=== PATIENT | female | born 1940 | race Caucasian/White ===

== ENCOUNTER 2020-05-11 16:17 | Emergency (ER) | payer MEDICARE ==
[2020-05-11 16:31] VITALS: BP 127/68; PULSE 68; RESP 18; TEMP 97.7
[2020-05-11] MEDS ORDERED: SODIUM CHLORIDE 0.9% 500 ML 500 ML IV STA (16:38)
--- NOTE | 2020-05-11 16:50 | ED ---
General Adult HPI - General Chief complaint: Neuro Symptoms/Deficit Stated complaint: Medication REaction Time Seen by Provider: 05/11/20 16:21 Source: EMS Mode of arrival: EMS Limitations: no limitations - History of Present Illness Initial comments: 79-year-old female patient presents to the emergency department today for evaluation of facial droop. Patient was at the dentist states that she had 2 teeth on the right upper and one tooth on the left upper work done today. She is brought in due to spasming of the right side of the face. Patient states she was having visual disturbance on the right side which resolved. She denies any headache or dizziness. Denies numbness, weakness, or pain to her extremities. Denies chest pain or shortness of breath. 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 Dentist appointment started at 1450. Patient denies any recent rash, fever, chills, cough, abdominal pain, nausea, vomiting, diarrhea, constipation, back pain, dizziness, weakness, hematuria, dysuria, urinary urgency, urinary frequency, or any other complaints. She does generally take plavix which she stopped before her procedure. - Related Data Allergies Allergy/AdvReac Type Severity Reaction Status Date / Time No Known Allergies Allergy Verified 05/11/20 16:31 Review of Systems ROS Statement: Those systems with pertinent positive or pertinent negative responses have been documented in the HPI. ROS Other: All systems not noted in ROS Statement are negative. Past Medical History Past Medical History: CVA/TIA, Hypertension Additional Past Medical History / Comment(s): diverticulosis, endometriosis, History of Any Multi-Drug Resistant Organisms: None Reported Additional Past Surgical History / Comment(s): bladder, carotid artery angioplasty, carpal tunnel, coronary artery stent placement, Past Psychological History: No Psychological Hx Reported Smoking Status: Never smoker Past Alcohol Use History: None Reported Past Drug Use History: None Reported General Exam Limitations: no limitations General appearance: alert, in no apparent distress, other (Physical well- developed, well-nourished elderly female patient in no acute distress. Vital signs upon presentation are temperature 97.7F, pulse 68, respirations 18, blood pressure 127/68, pulse ox 98% on room air.) Eye exam: Present: normal appearance, PERRL, EOMI. Absent: scleral icterus, conjunctival injection, periorbital swelling ENT exam: Present: normal exam, normal oropharynx, mucous membranes moist Respiratory exam: Present: normal lung sounds bilaterally. Absent: respiratory distress, wheezes, rales, rhonchi, stridor Cardiovascular Exam: Present: regular rate, normal rhythm, normal heart sounds. Absent: systolic murmur, diastolic murmur, rubs, gallop, clicks GI/Abdominal exam: Present: soft, normal bowel sounds. Absent: distended, tenderness, guarding, rebound, rigid Neurological exam: Present: alert, oriented X3, CN II-XII intact Expanded Speech: Present: fluid speech Cranial nerves: EOM's Intact: Normal, Tongue Deviation: Normal, Nystagmus: Norm al, Facial Sensation: Abnormal Left, Facial Palsy without Forehead Movement: Abnormal Left Upper motor neuron: Pronator Drift: Normal Motor strength exam: RUE: 5, LUE: 5, RLE: 5, LLE: 5 Psychiatric exam: Present: normal affect, normal mood Skin exam: Present: warm, dry, intact, normal color. Absent: rash Course Vital Signs 05/11/20 16:19 Temperature 97.7 F Pulse Rate 68 Respiratory 18 Rate Blood Pressure 127/68 O2 Sat by Pulse 98 Oximetry EKG Findings - EKG Comments: EKG Findings:: EKG obtained at 1735 shows normal sinus rhythm with a ventricular rate of 60, P return of a 154, QRS duration 80, QT 4:30, QTC 4:30. No evidence of ST elevation or depression Medical Decision Making - Medical Decision Making 79-year-old female patient presents to the emergency department today for evaluation of left-sided facial droop and right-sided spasming after having a dental procedure. Physical examination did reveal left-sided facial droop with forehead involvement. Remainder of physical neuro exam was unremarkable. She had no limb drift numbness, or taking going to the extremities. EKG was unremarkable. Chest x-ray is negative. CT brain was negative. Labs are unremarkable. Upon reevaluation patient symptoms have completely resolved. Did feel this is related to receiving medication for the dental procedure. She does feel comfortable being discharged home at this time. Instructed to follow-up with the primary care physician for recheck in 1-2 days. Return parameters were discussed in detail. They're to maintain low threshold to return if symptoms return or she has any new symptoms. Patient and verbalize understanding and agree with this plan. Case discussed with my attending Dr. Bailey. - Lab Data Result diagrams: 05/11/20 16:43 05/11/20 16:43 Lab Results 05/11/20 05/11/20 05/11/20 Range/Units 16:43 16:43 16:43 WBC 5.0 (3.8-10.6) k/uL RBC 4.04 (3.80-5.40) m/uL Hgb 12.2 (11.4-16.0) gm/dL Hct 36.5 (34.0-46.0) % MCV 90.2 (80.0-100.0) fL MCH 30.2 (25.0-35.0) pg MCHC 33.5 (31.0-37.0) g/dL RDW 12.7 (11.5-15.5) % Plt Count 207 (150-450) k/uL MPV 7.6 Neutrophils % 52 % Lymphocytes % 38 % Monocytes % 6 % Eosinophils % 2 % Basophils % 0 % Neutrophils # 2.6 (1.3-7.7) k/uL Lymphocytes # 1.9 (1.0-4.8) k/uL Monocytes # 0.3 (0-1.0) k/uL Eosinophils # 0.1 (0-0.7) k/uL Basophils # 0.0 (0-0.2) k/uL PT 10.7 (9.0-12.0) sec INR 1.0 (<1.2) APTT 20.7 L (22.0-30.0) sec Sodium 139 (137-145) mmol/L Potassium 4.5 (3.5-5.1) mmol/L Chloride 107 (98-107) mmol/L Carbon Dioxide 23 (22-30) mmol/L Anion Gap 9 mmol/L BUN 28 H (7-17) mg/dL Creatinine 1.13 H (0.52-1.04) mg/dL Est GFR (CKD-EPI)AfAm 54 (>60 ml/min/1.73 sqM) Est GFR (CKD-EPI)NonAf 47 (>60 ml/min/1.73 sqM) Glucose 88 (74-99) mg/dL Calcium 9.2 (8.4-10.2) mg/dL Total Bilirubin 0.5 (0.2-1.3) mg/dL AST 32 (14-36) U/L ALT 23 (4-34) U/L Alkaline Phosphatase 29 L (38-126) U/L Troponin I (0.000-0.034) ng/mL Total Protein 6.8 (6.3-8.2) g/dL Albumin 3.9 (3.5-5.0) g/dL 05/11/20 Range/Units 16:43 WBC (3.8-10.6) k/uL RBC (3.80-5.40) m/uL Hgb (11.4-16.0) gm/dL Hct (34.0-46.0) % MCV (80.0-100.0) fL MCH (25.0-35.0) pg MCHC (31.0-37.0) g/dL RDW (11.5-15.5) % Plt Count (150-450) k/uL MPV Neutrophils % % Lymphocytes % % Monocytes % % Eosinophils % % Basophils % % Neutrophils # (1.3-7.7) k/uL Lymphocytes # (1.0-4.8) k/uL Monocytes # (0-1.0) k/uL Eosinophils # (0-0.7) k/uL Basophils # (0-0.2) k/uL PT (9.0-12.0) sec INR (<1.2) APTT (22.0-30.0) sec Sodium (137-145) mmol/L Potassium (3.5-5.1) mmol/L Chloride (98-107) mmol/L Carbon Dioxide (22-30) mmol/L Anion Gap mmol/L BUN (7-17) mg/dL Creatinine (0.52-1.04) mg/dL Est GFR (CKD-EPI)AfAm (>60 ml/min/1.73 sqM) Est GFR (CKD-EPI)NonAf (>60 ml/min/1.73 sqM) Glucose (74-99) mg/dL Calcium (8.4-10.2) mg/dL Total Bilirubin (0.2-1.3) mg/dL AST (14-36) U/L ALT (4-34) U/L Alkaline Phosphatase (38-126) U/L Troponin I <0.012 (0.000-0.034) ng/mL Total Protein (6.3-8.2) g/dL Albumin (3.5-5.0) g/dL - Radiology Data Radiology results: report reviewed, image reviewed CT brain without contrast was obtained. Report is reviewed in its entirety. Impression by Dr. Balderas shows mild cervical atrophy. No acute intracranial abnormality. Two-view x-ray of the chest is obtained. Report is reviewed in its entirety. Impression by Dr. Polo shows no active cardiopulmonary disease. Normal heart. Disposition Clinical Impression: Facial droop, Medication reaction Disposition: HOME SELF-CARE Condition: Good Instructions (If sedation given, give patient instructions): Paresthesia (ED) Additional Instructions: Follow-up with your primary care physician for recheck in 1-2 days. If symptoms return present to nearest emergency department immediately. Return to the emergency department for any new, worsening, or concerning symptoms per Is patient prescribed a controlled substance at d/c from ED?: No Referrals: Mika Dow DO [Primary Care Provider] - 1-2 days Time of Disposition: 18:33
[2020-05-11 16:55] LABS: Basophils % (A) 0 %; Eosinophils # (A) 0.1 k/uL (0-0.7); Eosinophils % (A) 2 %; HCT 36.5 % (34.0-46.0); HGB 12.2 gm/dL (11.4-16.0); Lymphocytes # (A) 1.9 k/uL (1.0-4.8); Lymphocytes % (A) 38 %; MCH 30.2 pg (25.0-35.0); MCHC 33.5 g/dL (31.0-37.0); MCV 90.2 fL (80.0-100.0); Mean Platelet Volume 7.6; Monocytes # (A) 0.3 k/uL (0-1.0); Monocytes % (A) 6 %; Neutrophils # (A) 2.6 k/uL (1.3-7.7); Neutrophils % (A) 52 %; Platelet Count 207 k/uL (150-450); RBC 4.04 m/uL (3.80-5.40); RDW 12.7 % (11.5-15.5)
[2020-05-11 17:05] LABS: Albumin 3.9 g/dL (3.5-5.0); Calcium 9.2 mg/dL (8.4-10.2); Potassium 4.5 mmol/L (3.5-5.1); Total Bilirubin 0.5 mg/dL (0.2-1.3); Total Protein 6.8 g/dL (6.3-8.2)
[2020-05-11 17:10] LABS: Prothrombin Time 10.7 sec (9.0-12.0)
[2020-05-11 17:18] LABS: Partial Thromboplastin Time 20.7 sec (22.0-30.0)
--- NOTE | 2020-05-11 17:41 | CT ---
EXAMINATION TYPE: CT brain wo con DATE OF EXAM: 05/11/2020 COMPARISON: None HISTORY: Facial numbness post dental procedure CT DLP: 1063.4 mGycm Automated exposure control for dose reduction was used. There is mild cerebral atrophy. There is no mass effect nor midline shift. There is no sign of intrac ranial hemorrhage. Calvarium is intact. Skull base is intact. There is normal aeration of the mastoid sinuses. IMPRESSION: Mild cerebral atrophy. No acute intracranial abnormality.
--- NOTE | 2020-05-11 17:55 | XR ---
EXAMINATION TYPE: XR chest 2V DATE OF EXAM: 05/11/2020 COMPARISON: NONE HISTORY: Altered mental status TECHNIQUE: 2 views FINDINGS: There is no heart failure nor confluent pneumonic infiltrate. Costophrenic angles are clear . There are no hilar masses. Bony thorax is intact. IMPRESSION: No active cardiopulmonary disease. Normal heart.
== END 2020-05-11 18:51 | disposition home or self-care (01) ==
LOC: EC 16:17
DX: R29.810 Facial weakness (principal); T50.905A Adverse effect of unspecified drugs, medicaments and biological substances, initial encounter; I10 Essential (primary) hypertension; Z86.73 Personal history of transient ischemic attack (TIA), and cerebral infarction without residual deficits; Z95.5 Presence of coronary angioplasty implant and graft
CPT/HCPCS: 36415; 70450; 71046; 80053; 84484; 85025; 85610; 85730; 93005; 99284